=== PATIENT | male | born 1935 | race Caucasian/White ===

== ENCOUNTER 2016-09-11 16:16 | Inpatient (IN) | payer MEDICARE, OTHER ==
[~2016-09-11] VITALS: Ht 154.9 cm; Wt 67.1 kg
[~2016-09-11 16:16] MED LIST: ALBU2TAB5 PO; ALPR0.5T6 PO; BUDE6HFA INHALATION; DICL100G37 TOP; ENOX40DI2 SC; IBUP-1542 PO; LANT3I SC; MEMA28CA PO; NOVO3I SC; OMEP40CA6 PO; OXYB5TAB22 PO; RAMI5CAP46 PO; RISP0.5T3 PO; RIVA1PAT TD; SITA100T8 PO; TAMS-14 PO; TIOT18CA INHALATION; TRAZ50TA18 PO
[2016-09-11] MEDS ORDERED: KETOROLAC 30 MG INJ IV STA (16:28)
[2016-09-11] MEDS ORDERED: APIXABAN 5 MG TABLET PO ONE (17:00)
[2016-09-11 17:03] LABS: BASOPHILS % 0.1 % (0.0-2.0); EOSINOPHILS % 0.4 % (0.0-7.0); HEMATOCRIT 39.9 % (42.0-52.0); HEMOGLOBIN 12.9 g/dl (14.0-18.0); LYMPHOCYTES # 1.3 10^3/ul (0.8-2.9); LYMPHOCYTES % 17.5 % (15.0-51.0); MEAN CORPUSCULAR HEMOGLOBIN 31.7 pg (29.0-33.0); MEAN CORPUSCULAR HGB CONC 32.3 g/dl (32.0-37.0); MEAN PLATELET VOLUME 10.6 fl (7.4-10.4); MONOCYTE # 0.7 10^3/ul (0.3-0.9); MONOCYTES % 9.1 % (0.0-11.0); NEUTROPHIL # 5.2 10^3/ul (1.6-7.5); NEUTROPHILS % 72.6 % (39.0-77.0); PLATELET COUNT 118 10^3/UL (140-415); RED BLOOD COUNT 4.07 10^6/ul (4.70-6.10); RED CELL DISTRIBUTION WIDTH 13.8 % (11.5-14.5); WHITE BLOOD COUNT 7.2 10^3/ul (4.8-10.8)
--- NOTE | 2016-09-11 17:07 | RADRPT ---
AMENDMENT: 09/11/2016 5:32:18 PM Boom Preciado M.d Preliminary results given to versus from physician immediately after exam. AMENDMENT: 09/11/2016 5:31:23 PM Boom Preciado M.d PROCEDURE: US DVT. CLINICAL INDICATION: Right lower extremity pain and swelling. TECHNIQUE: Multiple longitudinal and transverse images of the right lower extremity veins were obt ained with etienne scale and color Doppler imaging. 2D grayscale measurements with compression, color Doppler flow, and augmentation was performed. COMPARISON: No prior studies are available for comparison. FINDINGS: The right common femoral, superficial femoral and popliteal veins are noncompressible throughout. T here is no color flow seen throughout the lower extremity veins consistent with extensive occlusive deep venous thrombosis of the right lower extremity. IMPRESSION: 1. Extensive occlusive deep venous thrombosis of the right lower extremity. RPTAT: QQ Please disregard report below. PROCEDURE: US DVT. CLINICAL INDICATION: Right lower extremity pain and swelling. TECHNIQUE: Multiple longitudinal and transverse images of the right lower extremity veins were obt ained with etienne scale and color Doppler imaging. 2D grayscale measurements with compression, color Doppler flow, and augmentation was performed. COMPARISON: No prior studies are available for comparison. FINDINGS: The right common femoral, superficial femoral and popliteal veins are normally compressible througho ut. Color flow demonstrates normal filling of the vessel. Normal waveforms are visualized and ther e is normal response to augmentation. IMPRESSION: 1. No evidence of a deep vein thrombosis involving the right lower extremity. RPTAT: QQ .Boom Preciado MD, MD Date Time Electronically viewed and signed by .Boom Preciado MD, MD on 09/11/2016 17:32 .L/
--- NOTE | 2016-09-11 17:15 | RADRPT ---
PROCEDURE: XR Chest. CLINICAL INDICATION: Chest Pain. TECHNIQUE: Single frontal chest x-ray. COMPARISON: 05/15/2015 FINDINGS: The lungs are clear of acute infiltrates, edema, effusions, or masses. Biapical pleural and parenchy mal scarring is again noted.. Calcific atherosclerosis of the aorta is present. The cardiomediastin al silhouette is unremarkable. The osseous structures are intact. Low lung volumes are present. IMPRESSION: No acute cardiopulmonary disease. Senescent changes of the chest. RPTAT: QQ .Boom Preciado MD, MD Date Time Electronically viewed and signed by .Boom Preciado MD, on 09/11/2016 17:15 .L/
[2016-09-11 17:25] LABS: ANION GAP 18 (8-16); BLOOD UREA NITROGEN 35 mg/dl (7-20); CALCIUM 9.5 mg/dl (8.4-10.2); CARBON DIOXIDE 29 mmol/L (21-31); CHLORIDE 105 mmol/L (97-110); CREATININE 0.96 mg/dl (0.61-1.24); POTASSIUM 5.1 mmol/L (3.5-5.1); SODIUM 147 mmol/L (135-144)
[2016-09-11 17:26] LABS: INR 1.16; PARTIAL THROMBOPLASTIN TIME 26.4 Sec (25.0-35.0); PROTIME 14.9 Sec (12.2-14.2); PT RATIO 1.2
[2016-09-11 17:29] LABS: GLUCOSE 550 mg/dl (70-220)
[2016-09-11] MEDS ORDERED: ACETAMINOPHEN 325 MG TAB PO PRN (17:30)
[2016-09-11] MEDS ORDERED: ONDANSETRON 4 MG INJ IV PRN (17:30)
[2016-09-11 17:39] LABS: TROPONIN-I < 0.012 ng/ml (0.00-0.12)
[2016-09-11] MEDS ORDERED: INSULIN LISPRO 100 UNIT/ML VIAL SC STA (17:40)
--- NOTE | 2016-09-11 17:56 | ERA ---
ER Documentation Chief Complaint Date/Time DATE: 09/11/16 TIME: 17:54 Chief Complaint R LEG DISCOLORATION AND SWELLING FOR THE PAST 2 DAYS. NO TRAUMA PER FAMILY HPI Patient is a 80-year-old male with diabetes and dementia who presents with right leg pain and swelling. Please note the history and physical exam is limited secondary to the patient's dementia. The patient has right leg pain, swelling, and discoloration over the past 2 days. The whole leg is swollen. He denies fevers. He takes a baby aspirin occasionally per his son. The primary doctor is Dr. Shen. ROS All systems reviewed and are negative except as per history of present illness. Medications Home Meds Active Scripts Insulin Aspart* (Novolog Insulin Pen*) 100 Unit/Ml Soln, 4 UNIT SC WITH MEALS for 30 Days, BOT Prov:TONO OLRA MD 05/09/15 Insulin Glargine* (Lantus*) 100 Unit/Ml Soln, 18 UNIT SC DAILY for 30 Days, BOT Prov:TONO LORA MD 05/09/15 Enoxaparin Sodium* (Enoxaparin Sodium*) 40 Mg/0.4 Ml Soln, 40 MG SC DAILY for 30 Days, VIAL Prov:TONO LORA MD 05/09/15 Reported Medications Albuterol Sulfate* (Albuterol Sulfate*) 2 Mg Tablet, 2 MG PO BID, #120 TAB 04/18/15 Memantine* (Namenda* XR) 28 Mg Cap.spr.24, 28 MG PO DAILY, #30 TAB 04/18/15 Rivastigmine* Patch (Exelon* Patch) 13.3 Mg/24 Hr Patch.td24, 1 PATCH TD DAILY, PATCH 04/18/15 Budesonide-Formoterol Fumarate* (Symbicort*) 160-4.5 Hfa.aer.ad, 2 PUFF INHALATION BID, #1 EACH 04/18/15 Sitagliptin* (Januvia*) 100 Mg Tablet, 100 MG PO DAILY, #30 TAB 04/18/15 Tiotropium Edna* (Spiriva*) 18 Mcg Cap.w.dev, 1 CAP INHALATION DAILY, #30 CAP 04/18/15 Trazodone Hcl* (Desyrel*) 50 Mg Tab, 50 MG PO BID, #60 TAB 04/18/15 Omeprazole* (Omeprazole*) 40 Mg Capsule.dr, 40 MG PO DAILY, #30 CAP 04/18/15 Tamsulosin Hcl* (Flomax*) 0.4 Mg Cap.er.24h, 0.4 MG PO DAILY, CAP 04/18/15 Risperidone* (Risperidone*) 0.5 Mg Tablet, 0.5 MG PO DAILY, TAB 04/18/15 Ibuprofen* (Motrin*) 600 Mg Tab, 600 MG PO Q8H Y for PAIN, TAB 04/18/15 Diclofenac Sodium* (Voltaren* Gel) 1% -100 Gm Gel, 2 GM TOP TID, #1 TUB 04/18/15 Oxybutynin Chloride* (Ditropan* XL) 5 Mg Tabsr, 5 MG PO DAILY, TAB.SA 04/18/15 Alprazolam* (Alprazolam*) 0.5 Mg Tablet, 0.5 MG PO Q8H Y for ANXIETY, TAB 04/18/15 Ramipril (Ramipril) 5 Mg Capsule, 5 MG PO DAILY, CAP 04/18/15 Allergies Allergies: Coded Allergies: No Known Allergy (Unverified , 04/18/15) PMhx/Soc History of Surgery: Yes (R THR 3 MONTHS AGO ) Anesthesia Reaction: No Hx Neurological Disorder: No Hx Respiratory Disorders: Yes (COPD) Hx Cardiac Disorders: Yes (HTN) Hx Psychiatric Problems: Yes (ANXIETY DISORDER, DEMENTIA, SCHIZOPHRENIA) Hx Miscellaneous Medical Probl: Yes (BPH, dementia, schizophrenia, anxiety, GERD) Hx Alcohol Use: No Hx Substance Use: No Hx Tobacco Use: No Smoking Status: Former smoker FmHx Family History: diabetes Physical Exam Vitals Vital Signs Date Time Temp Pulse Resp B/P Pulse Ox O2 Delivery O2 Flow Rate FiO2 09/11/16 17:38 95 18 168/99 99 Room Air 09/11/16 16:44 Nasal Cannula 2 09/11/16 16:17 98.9 88 20 131/71 98 Physical Exam Const: Mild distress Head: Atraumatic Eyes: Normal Conjunctiva ENT: Normal External Ears, Nose and Mouth. Neck: Full range of motion..~ No meningismus. Resp: Clear to auscultation bilaterally Cardio: Regular rate and rhythm, no murmurs Abd: Soft, non tender, non distended. Normal bowel sounds Skin: Cyanosis of the right leg Back: No midline or flank tenderness Ext: Right leg swelling with discoloration compared to the left Neur: Awake but demented at baseline Result Diagram: 09/11/16 1648 09/11/16 1648 Results 24 hrs Laboratory Tests Test 09/11/16 16:48 White Blood Count 7.210^3/ul Red Blood Count 4.0710^6/ul Hemoglobin 12.9g/dl Hematocrit 39.9% Mean Corpuscular Volume 98.0fl Mean Corpuscular Hemoglobin 31.7pg Mean Corpuscular Hemoglobin Concent 32.3g/dl Red Cell Distribution Width 13.8% Platelet Count 63489^3/UL Mean Platelet Volume 10.6fl Neutrophils % 72.6% Lymphocytes % 17.5% Monocytes % 9.1% Eosinophils % 0.4% Basophils % 0.1% Nucleated Red Blood Cells % 0.0/100WBC Neutrophils # 5.210^3/ul Lymphocytes # 1.310^3/ul Monocytes # 0.710^3/ul Eosinophils # 0.010^3/ul Basophils # 0.010^3/ul Nucleated Red Blood Cells # 0.010^3/ul Prothrombin Time 14.9Sec Prothrombin Time Ratio 1.2 INR International Normalized Ratio 1.16 Activated Partial Thromboplast Time 26.4Sec Sodium Level 147mmol/L Potassium Level 5.1mmol/L Chloride Level 105mmol/L Carbon Dioxide Level 29mmol/L Anion Gap 18 Blood Urea Nitrogen 35mg/dl Creatinine 0.96mg/dl Glucose Level 550mg/dl Calcium Level 9.5mg/dl Troponin I < 0.012ng/ml Current Medications Medications (Trade) Dose Ordered Sig/Raj Route PRN Reason Start Time Stop Time Status Last Admin Dose Admin Ketorolac Tromethamine (Toradol) 30 mg ONCE STAT IV 09/11/16 16:28 09/11/16 16:29 DC 09/11/16 17:18 Apixaban (Eliquis) 10 mg ONCE ONCE PO 09/11/16 17:00 09/11/16 17:01 DC 09/11/16 17:18 Ondansetron HCl (Zofran Inj) 4 mg BRIDGE ORDER PRN IV NAUSEA AND/OR VOMITING 09/11/16 17:30 09/12/16 17:29 Acetaminophen (Tylenol Tab) 650 mg ER BRIDGE PRN PO MILD PAIN/FEVER 09/11/16 17:30 09/12/16 17:29 Insulin Human Lispro (Humalog) 20 unit ONCE STAT SC 09/11/16 17:40 09/11/16 17:41 DC 09/11/16 17:48 Procedures/MDM EKG read by me: Rate/Rhythm: Regular rate and rhythm at a rate of 81 Intervals: Normal Impression: No evidence of ischemia or arrhythmia Ultrasound of the right lower extremity shows acute DVT. Patient is a 80-year-old male who presents with a right lower extremity DVT. He is a large DVT and the patient will be given Eliquis 10 mg by mouth. The patient be admitted to a surgical bed under the care of Dr. Ma who is covering for Dr. Shen. The patient has no sign of pulmonary embolism at this time. His prognosis is poor. He has hyperkalemia and was given 20 units of Humalog subcutaneous. There is no sign of diabetic ketoacidosis at this time. Critical Care: Time: 35 minutes excluding all billable procedures. Treatments/Evaluations: Close monitoring and treatment of unstable vital signs, cardiorespiratory, and neurologic status, while maintaining tight balance of fluid, respiratory, and cardiac interventions. Departure Diagnosis: Primary Impression: DVT (deep venous thrombosis) Qualified Code: I82.401 - Acute deep vein thrombosis (DVT) of right lower extremity, unspecified vein Additional Impression: Pain of right leg Condition: Serious SUYAPA HANKS MD Sep 11, 2016 17:56
[2016-09-11 18:20] VITALS: BP 184/83; PULSE 79; RESP 18
[2016-09-11 18:56] VITALS: BP 184/83; RESP 18
[2016-09-11 19:30] VITALS: Ht 154.9 cm; Wt 67.1 kg
[2016-09-11] MEDS ORDERED: IBUPROFEN 600 MG TAB PO PRN (20:30)
[2016-09-11 20:53] VITALS: BP_SYST 125; BP_SYST 95; BP_DIAS 60; BP_DIAS 68; RESP 16
[2016-09-11] MEDS ORDERED: ALBUTEROL 2 MG TAB PO SCH (21:00)
[2016-09-11] MEDS ORDERED: MEMANTINE 10 MG TAB PO SCH (21:00)
[2016-09-11] MEDS ORDERED: DEXTROSE 50% 50 ML SYRINGE IV PRN ×2 (21:00)
[2016-09-11] MEDS: INSULIN GLARGINE [LANtus] 3 ML PEN SC SCH (21:00)
[2016-09-11] MEDS ORDERED: GLUCAGON 1 MG INJ IM PRN (21:00)
[2016-09-11] MEDS ORDERED: GLUCOSE GEL 15 GRAM TUBE BUCCAL PRN (21:00)
[2016-09-11] MEDS ORDERED: traZODone 50 MG TAB PO SCH (21:00)
[2016-09-11] MEDS: INSULIN ASPART [NOVOLOG] 3 ML PEN SC SCH (21:00)
[2016-09-11] MEDS ORDERED: GLUCOSE GEL 15 GRAM TUBE PO PRN ×2 (21:00)
[2016-09-11] MEDS ORDERED: SPECIAL NON-STANDARD MEDICATION PO SCH (21:00)
[2016-09-11] MEDS: APIXABAN 5 MG TABLET PO SCH (23:03)
[2016-09-11] MEDS: TAMSULOSIN (SR) 0.4 MG CAP PO SCH (23:03)
[2016-09-11] MEDS: traZODone 50 MG TAB PO SCH (23:04)
[2016-09-11] MEDS: DICLOFENAC SODIUM 1% GEL 100 GM TUBE TP SCH (23:04)
[2016-09-12] MEDS: ACCU-CHEK XX SCH ×2 (02:00)
[2016-09-12 02:48] VITALS: BP 99/56; RESP 18
[2016-09-12 05:38] LABS: BASOPHILS % 0.4 % (0.0-2.0); EOSINOPHILS # 0.1 10^3/ul (0.0-0.5); EOSINOPHILS % 1.2 % (0.0-7.0); HEMATOCRIT 36.7 % (42.0-52.0); HEMOGLOBIN 11.8 g/dl (14.0-18.0); LYMPHOCYTES # 1.8 10^3/ul (0.8-2.9); LYMPHOCYTES % 25.5 % (15.0-51.0); MEAN CORPUSCULAR HEMOGLOBIN 31.9 pg (29.0-33.0); MEAN CORPUSCULAR HGB CONC 32.2 g/dl (32.0-37.0); MEAN CORPUSCULAR VOLUME 99.2 fl (82.0-101.0); MEAN PLATELET VOLUME 10.2 fl (7.4-10.4); MONOCYTE # 0.7 10^3/ul (0.3-0.9); MONOCYTES % 9.6 % (0.0-11.0); NEUTROPHIL # 4.3 10^3/ul (1.6-7.5); NEUTROPHILS % 63.2 % (39.0-77.0); PLATELET COUNT 110 10^3/UL (140-415); RED CELL DISTRIBUTION WIDTH 13.7 % (11.5-14.5); WHITE BLOOD COUNT 6.9 10^3/ul (4.8-10.8)
[2016-09-12 05:57] LABS: CALCIUM 9.5 mg/dl (8.4-10.2); CREATININE 1.05 mg/dl (0.61-1.24); POTASSIUM 4.2 mmol/L (3.5-5.1)
[2016-09-12] MEDS ORDERED: PANTOPRAZOLE (EC) 40 MG TAB PO SCH (06:00)
[2016-09-12 08:25] VITALS: BP 165/70; RESP 18
[2016-09-12] MEDS: MULTIVITAMINS/MINERALS TAB PO SCH (08:58)
[2016-09-12] MEDS: LINAGLIPTIN 5 MG TABLET PO SCH (08:58)
[2016-09-12] MEDS: APIXABAN 5 MG TABLET PO SCH ×2 (08:58→20:23)
[2016-09-12] MEDS: MEMANTINE 10 MG TAB PO SCH (08:58)
[2016-09-12] MEDS: INSULIN ASPART [NOVOLOG] 3 ML PEN SC SCH ×4 (08:59→20:26)
[2016-09-12] MEDS: DICLOFENAC SODIUM 1% GEL 100 GM TUBE TP SCH ×2 (08:59→11:59)
[2016-09-12] MEDS ORDERED: NON-FORMULARY/PATIENT OWN MED (Sitagliptin* (Januvia*) 100 MG) PO SCH (09:00)
[2016-09-12] MEDS ORDERED: MEMANTINE 10 MG TAB PO SCH (09:00)
[2016-09-12] MEDS ORDERED: NON-FORMULARY/PATIENT OWN MED (Sitagliptin* (Januvia*) 50 MG) PO SCH (09:00)
--- NOTE | 2016-09-12 12:52 | HP ---
Date/Time of Note Date/Time of Note DATE: 09/12/16 TIME: 12:50 Assessment/Plan VTE Prophylaxis VTE Prophylaxis Intervention: other Lines/Catheters [facility] Urinary Cath still in place: No Assessment/Plan Chief Complaint/Hosp Course 1) Deep venous thrombosis - continue eliquis 2) diabetes - monitor blood sugar 3) dementia - monitor Problems: HPI/ROS Admit Date/Time Admit Date/Time Sep 11, 2016 at 17:07 Hx of Present Illness Patient with dementia, hypertension, diabetes, bed-bound, comes in with right leg weakness. Patient was found to have extensive deep venous thrombosis. Patient is started on eliquis and will be monitored. PMH/Family/Social Past Medical History Medical History: coronary artery disease, diabetes, hypertension Social History Alcohol Use: none Smoking Status: Former smoker Exam/Review of Systems Vital Signs Vitals Vital Signs Date Time Temp Pulse Resp B/P Pulse Ox O2 Delivery O2 Flow Rate FiO2 09/12/16 08:25 97.7 74 18 165/70 97 09/11/16 18:20 Room Air 09/11/16 16:44 2 Intake and Output 09/11/16 09/11/16 09/12/16 15:00 23:00 07:00 Intake Total 240 ml Balance 240 ml Exam Constitutional: well developed Head: atraumatic, normocephalic Neck: supple Respiratory: clear to auscultation Cardiovascular: regular rate and rhythm Gastrointestinal: non-tender, soft Extremities: normal pulses Labs Result Diagram: 09/12/16 0426 09/12/16 0426 Medications Medications Current Medications Insulin Glargine (Lantus) 18 unit DAILY@20 SC ; Start 09/11/16 at 21:00 Diagnostic Test (Pha) (Accu-Chek) 1 ea 02 XX ; Start 09/12/16 at 02:00 Diagnostic Test (Pha) (Accu-Chek) 1 ea 02 XX ; Start 09/12/16 at 02:00 Diclofenac Sodium (Voltaren 1% Gel) 2 gm QID TP Last administered on 09/12/16t 11:59; Admin Dose 2 GM; Start 09/11/16 at 22:00 Ibuprofen (Motrin) 600 mg Q8H PRN PO pain; Start 09/11/16 at 20:30 Tamsulosin HCl (Flomax) 0.4 mg HS PO Last administered on 09/11/16 23:03; Admin Dose 0.4 MG; Start 09/11/16 at 21:00 Miscellaneous Information 1 ea NOTE XX ; Start 09/11/16 at 21:00 Glucose (Glutose) 15 gm Q15M PRN PO DECREASED GLUCOSE; Start 09/11/16 at 21:00 Glucose (Glutose) 22.5 gm Q15M PRN PO DECREASED GLUCOSE; Start 09/11/16 at 21:00 Dextrose (D50w Syringe) 25 ml Q15M PRN IV DECREASED GLUCOSE; Start 09/11/16 at 21:00 Dextrose (D50w Syringe) 50 ml Q15M PRN IV DECREASED GLUCOSE; Start 09/11/16 at 21:00 Glucagon (Glucagen) 1 mg Q15M PRN IM DECREASED GLUCOSE; Start 09/11/16 at 21:00 Glucose (Glutose) 15 gm Q15M PRN BUCCAL DECREASED GLUCOSE; Start 09/11/16 at 21: 00 Linagliptin (Tradjenta) 5 mg DAILY PO Last administered on 09/12/16 08:58; Admin Dose 5 MG; Start 09/12/16 at 09:00 Trazodone HCl (Desyrel) 100 mg HS PO Last administered on 09/11/16 23:04; Admin Dose 100 MG; Start 09/11/16 at 21:00 Multivitamins/ Minerals (Theragran-M) 1 tab DAILY PO Last administered on 08:58; Admin Dose 1 TAB; Start 09/12/16 at 09:00 Apixaban (Eliquis) 5 mg BID PO Last administered on 09/12/16 08:58; Admin Dose 5 MG; Start 09/11/16 at 21:00 Memantine (Namenda) 10 mg DAILY PO Last administered on 09/12/16 08:58; Admin Dose 10 MG; Start 09/12/16 at 09:00 VASILIY CABA Sep 12, 2016 12:52
[2016-09-12 15:37] VITALS: BP 136/66; RESP 18
[2016-09-12 19:30] VITALS: BP 120/70; RESP 16
[2016-09-12] MEDS: INSULIN GLARGINE [LANtus] 3 ML PEN SC SCH (20:00)
[2016-09-12] MEDS: traZODone 50 MG TAB PO SCH (20:23)
[2016-09-12] MEDS: TAMSULOSIN (SR) 0.4 MG CAP PO SCH (20:23)
[2016-09-12] MEDS ORDERED: INSULIN GLARGINE [LANtus] 3 ML PEN SC ONE (21:00)
[2016-09-13] MEDS: ACCU-CHEK XX SCH ×2 (02:00)
[2016-09-13 02:20] VITALS: BP 137/65; RESP 18
[2016-09-13 07:40] VITALS: BP 137/64; RESP 18
[2016-09-13] MEDS: INSULIN ASPART [NOVOLOG] 3 ML PEN SC SCH ×5 (08:00→21:15)
[2016-09-13] MEDS: MEMANTINE 10 MG TAB PO SCH (08:38)
[2016-09-13] MEDS: LINAGLIPTIN 5 MG TABLET PO SCH (08:38)
[2016-09-13] MEDS: MULTIVITAMINS/MINERALS TAB PO SCH (08:38)
[2016-09-13] MEDS: APIXABAN 5 MG TABLET PO SCH ×2 (08:38→21:14)
[2016-09-13 14:55] VITALS: BP 166/74; RESP 18
[2016-09-13 16:13] VITALS: BP 142/76; PULSE 62
[2016-09-13] MEDS: SOD CHLORIDE 0.45% 1,000 ML IV SCH (18:11)
--- NOTE | 2016-09-13 18:19 | PN ---
Date/Time of Note Date/Time of Note DATE: 09/13/16 TIME: 18:17 Assessment/Plan VTE Prophylaxis VTE Prophylaxis Intervention: other Lines/Catheters IV Catheter Type (from Nrsg): Mid Line Urinary Cath still in place: No Assessment/Plan Assessment/Plan -Right lower extremity deep venous thrombosis, continue Eliquis. -Advanced dementia, continue Namenda. -Diabetes mellitus type 2. Continue Tradjenta Lantus and NovoLog. Further recommendations based on clinical course. Plan of care discussed with Dr. Shen. Exam/Review of Systems Vital Signs Vitals Vital Signs Date Time Temp Pulse Resp B/P Pulse Ox O2 Delivery O2 Flow Rate FiO2 09/13/16 16:13 62 142/76 09/13/16 14:55 98.1 18 96 09/11/16 18:20 Room Air 09/11/16 16:44 2 Intake and Output 09/12/16 09/12/16 09/13/16 15:00 23:00 07:00 Intake Total 640 ml 220 ml Balance 640 ml 220 ml Exam Constitutional: alert Psych: confusion Neck: supple Respiratory: normal air movement Cardiovascular: nl pulses Gastrointestinal: non-tender, soft Extremities: edema (Right lower extremity) Neurological: confused Skin: nl turgor Results Result Diagram: 09/12/16 0426 09/12/16 0426 Results 24 hrs Laboratory Tests Test 09/12/16 20:25 09/13/16 02:39 09/13/16 07:56 09/13/16 11:56 Bedside Glucose 275 H 194 204 223 H Test 09/13/16 17:22 Bedside Glucose 216 Medications Medications Current Medications Insulin Glargine (Lantus) 18 unit DAILY@20 SC ; Start 09/11/16 at 21:00 Diagnostic Test (Pha) (Accu-Chek) 1 ea 02 XX ; Start 09/12/16 at 02:00 Diagnostic Test (Pha) (Accu-Chek) 1 ea 02 XX ; Start 09/12/16 at 02:00 Ibuprofen (Motrin) 600 mg Q8H PRN PO pain; Start 09/11/16 at 20:30 Tamsulosin HCl (Flomax) 0.4 mg HS PO Last administered on 09/12/16t 20:23; Admin Dose 0.4 MG; Start 09/11/16 at 21:00 Miscellaneous Information 1 ea NOTE XX ; Start 09/11/16 at 21:00 Glucose (Glutose) 15 gm Q15M PRN PO DECREASED GLUCOSE; Start 09/11/16 at 21:00 Glucose (Glutose) 22.5 gm Q15M PRN PO DECREASED GLUCOSE; Start 09/11/16 at 21:00 Dextrose (D50w Syringe) 25 ml Q15M PRN IV DECREASED GLUCOSE; Start 09/11/16 at 21:00 Dextrose (D50w Syringe) 50 ml Q15M PRN IV DECREASED GLUCOSE; Start 09/11/16 at 21:00 Glucagon (Glucagen) 1 mg Q15M PRN IM DECREASED GLUCOSE; Start 09/11/16 at 21:00 Glucose (Glutose) 15 gm Q15M PRN BUCCAL DECREASED GLUCOSE; Start 09/11/16 at 21: 00 Linagliptin (Tradjenta) 5 mg DAILY PO Last administered on 09/13/16 08:38; Admin Dose 5 MG; Start 09/12/16 at 09:00 Trazodone HCl (Desyrel) 100 mg HS PO Last administered on 09/12/16 20:23; Admin Dose 100 MG; Start 09/11/16 at 21:00 Multivitamins/ Minerals (Theragran-M) 1 tab DAILY PO Last administered on 08:38; Admin Dose 1 TAB; Start 09/12/16 at 09:00 Apixaban (Eliquis) 5 mg BID PO Last administered on 09/13/16 08:38; Admin Dose 5 MG; Start 09/11/16 at 21:00 Memantine 10 mg 10 mg DAILY PO Last administered on 09/13/16 08:38; Admin Dose 10 MG; Start 09/12/16 at 09:00 Sodium Chloride (1/2 NS) 1,000 ml @ 50 mls/hr Q20H IV Last administered on 09/13 18:11; Admin Dose 50 MLS/HR; Start 09/13/16 at 17:30 JAROD BECKFORD Sep 13, 2016 18:19
[2016-09-13 20:03] VITALS: BP 137/97; RESP 17
[2016-09-13] MEDS: TAMSULOSIN (SR) 0.4 MG CAP PO SCH (21:14)
[2016-09-13] MEDS: INSULIN GLARGINE [LANtus] 3 ML PEN SC SCH (21:16)
[2016-09-13] MEDS: traZODone 50 MG TAB PO SCH (22:33)
[2016-09-14] MEDS: ACCU-CHEK XX SCH ×2 (02:00)
[2016-09-14] MEDS ORDERED: ACCU-CHEK XX SCH ×3 (02:00)
[2016-09-14 02:05] VITALS: BP 143/68; RESP 17
[2016-09-14 05:59] LABS: BASOPHILS % 0.5 % (0.0-2.0); EOSINOPHILS # 0.2 10^3/ul (0.0-0.5); EOSINOPHILS % 2.5 % (0.0-7.0); HEMATOCRIT 36.3 % (42.0-52.0); HEMOGLOBIN 11.9 g/dl (14.0-18.0); LYMPHOCYTES # 2.1 10^3/ul (0.8-2.9); LYMPHOCYTES % 32.6 % (15.0-51.0); MEAN CORPUSCULAR HEMOGLOBIN 31.8 pg (29.0-33.0); MEAN CORPUSCULAR HGB CONC 32.8 g/dl (32.0-37.0); MEAN CORPUSCULAR VOLUME 97.1 fl (82.0-101.0); MEAN PLATELET VOLUME 10.2 fl (7.4-10.4); MONOCYTE # 0.6 10^3/ul (0.3-0.9); MONOCYTES % 9.7 % (0.0-11.0); NEUTROPHIL # 3.4 10^3/ul (1.6-7.5); NEUTROPHILS % 54.2 % (39.0-77.0); PLATELET COUNT 147 10^3/UL (140-415); RED BLOOD COUNT 3.74 10^6/ul (4.70-6.10); RED CELL DISTRIBUTION WIDTH 13.1 % (11.5-14.5); WHITE BLOOD COUNT 6.3 10^3/ul (4.8-10.8)
[2016-09-14 06:42] LABS: ALBUMIN 3.4 g/dl (3.3-4.9); ALBUMIN/GLOBULIN RATIO 0.91; BILIRUBIN,INDIRECT 0.6 mg/dl (0-1.1); BILIRUBIN,TOTAL 0.6 mg/dl (0.2-1.3); CALCIUM 9.3 mg/dl (8.4-10.2); CHOL/HDL RATIO 3.1 RATIO; CREATININE 0.84 mg/dl (0.61-1.24); POTASSIUM 3.9 mmol/L (3.5-5.1); TOTAL PROTEIN 7.1 g/dl (6.1-8.1)
[2016-09-14] MEDS ORDERED: INSULIN ASPART [NOVOLOG] 3 ML PEN SC SCH ×2 (07:35→08:00)
[2016-09-14] MEDS: INSULIN ASPART [NOVOLOG] 3 ML PEN SC SCH ×4 (07:56→21:39)
[2016-09-14 08:00] VITALS: BP 118/64; RESP 19
[2016-09-14] MEDS: APIXABAN 5 MG TABLET PO SCH ×2 (08:34→21:38)
[2016-09-14] MEDS: LINAGLIPTIN 5 MG TABLET PO SCH (08:34)
[2016-09-14] MEDS: MEMANTINE 10 MG TAB PO SCH (08:34)
[2016-09-14] MEDS: MULTIVITAMINS/MINERALS TAB PO SCH (08:34)
[2016-09-14] MEDS: SOD CHLORIDE 0.45% 1,000 ML IV SCH ×2 (13:30→15:47)
[2016-09-14 14:00] VITALS: BP 160/87; RESP 19
--- NOTE | 2016-09-14 18:18 | PN ---
Date/Time of Note Date/Time of Note DATE: 09/14/16 TIME: 18:15 Assessment/Plan VTE Prophylaxis VTE Prophylaxis Intervention: other (Eliquis) Lines/Catheters [facility] Peripheral IV Urinary Cath still in place: No Assessment/Plan Chief Complaint/Hosp Course Patient with slightly decreased right lower extremity edema, remains hemodynamically stable. Episodes of episodes of hypoglycemia during the daytime , will add pre-meal NovoLog to current diabetes management. Assessment/Plan -Right lower extremity deep venous thrombosis, continue Eliquis. -Advanced dementia, continue Namenda. -Diabetes mellitus type 2. Hemoglobin A1c is 8.0, continue Tradjenta Lantus and pre-meal NovoLog. -Hypertension, patient is currently normotensive. -History of schizophrenia. Further recommendations based on clinical course. Plan of care discussed with Dr. Shen. Problems: Exam/Review of Systems Vital Signs Vitals Vital Signs Date Time Temp Pulse Resp B/P Pulse Ox O2 Delivery O2 Flow Rate FiO2 09/14/16 08:00 98.0 68 19 118/64 98 09/11/16 18:20 Room Air 09/11/16 16:44 2 Intake and Output 09/13/16 09/13/16 09/14/16 15:00 23:00 07:00 Intake Total 1020 ml 700 ml Balance 1020 ml 700 ml Exam Constitutional: alert Psych: confusion Neck: supple Respiratory: normal air movement Cardiovascular: nl pulses Gastrointestinal: non-tender, soft Extremities: edema (Right lower extremity) Neurological: confused Skin: nl turgor Results Result Diagram: 09/14/16 0432 09/14/16 0432 Results 24 hrs Laboratory Tests Test 09/13/16 21:12 09/14/16 02:53 09/14/16 04:32 09/14/16 07:54 Bedside Glucose 235 H 147 84 White Blood Count 6.3 Red Blood Count 3.74 L Hemoglobin 11.9 L Hematocrit 36.3 L Mean Corpuscular Volume 97.1 Mean Corpuscular Hemoglobin 31.8 Mean Corpuscular Hemoglobin Concent 32.8 Red Cell Distribution Width 13.1 Platelet Count 147 # Mean Platelet Volume 10.2 Neutrophils % 54.2 Lymphocytes % 32.6 Monocytes % 9.7 Eosinophils % 2.5 Basophils % 0.5 Nucleated Red Blood Cells % 0.0 Neutrophils # 3.4 Lymphocytes # 2.1 Monocytes # 0.6 Eosinophils # 0.2 Basophils # 0.0 Nucleated Red Blood Cells # 0.0 Sodium Level 146 H Potassium Level 3.9 Chloride Level 104 Carbon Dioxide Level 30 Anion Gap 16 Blood Urea Nitrogen 30 H Creatinine 0.84 Glucose Level 116 Hemoglobin A1c 8.0 H Calcium Level 9.3 Total Bilirubin 0.6 Direct Bilirubin 0.00 Indirect Bilirubin 0.6 Aspartate Amino Transf (AST/SGOT) 20 Alanine Aminotransferase (ALT/SGPT) 25 Alkaline Phosphatase 57 Total Protein 7.1 Albumin 3.4 Globulin 3.70 H Albumin/Globulin Ratio 0.91 Triglycerides Level 62 Cholesterol Level 116 LDL Cholesterol, Calculated 67 HDL Cholesterol 37 Cholesterol/HDL Ratio 3.1 Test 09/14/16 11:59 09/14/16 17:24 Bedside Glucose 231 H 252 H Medications Medications Current Medications Diagnostic Test (Pha) (Accu-Chek) 1 ea 02 XX ; Start 09/12/16 at 02:00 Diagnostic Test (Pha) (Accu-Chek) 1 ea 02 XX ; Start 09/12/16 at 02:00 Ibuprofen (Motrin) 600 mg Q8H PRN PO pain; Start 09/11/16 at 20:30 Tamsulosin HCl (Flomax) 0.4 mg HS PO Last administered on 09/13/16 21:14; Admin Dose 0.4 MG; Start 09/11/16 at 21:00 Miscellaneous Information 1 ea NOTE XX ; Start 09/11/16 at 21:00 Glucose (Glutose) 15 gm Q15M PRN PO DECREASED GLUCOSE; Start 09/11/16 at 21:00 Glucose (Glutose) 22.5 gm Q15M PRN PO DECREASED GLUCOSE; Start 09/11/16 at 21:00 Dextrose (D50w Syringe) 25 ml Q15M PRN IV DECREASED GLUCOSE; Start 09/11/16 at 21:00 Dextrose (D50w Syringe) 50 ml Q15M PRN IV DECREASED GLUCOSE; Start 09/11/16 at 21:00 Glucagon (Glucagen) 1 mg Q15M PRN IM DECREASED GLUCOSE; Start 09/11/16 at 21:00 Glucose (Glutose) 15 gm Q15M PRN BUCCAL DECREASED GLUCOSE; Start 09/11/16 at 21: 00 Linagliptin (Tradjenta) 5 mg DAILY PO Last administered on 09/14/16 08:34; Admin Dose 5 MG; Start 09/12/16 at 09:00 Trazodone HCl (Desyrel) 100 mg HS PO Last administered on 09/13/16 22:33; Admin Dose 100 MG; Start 09/11/16 at 21:00 Multivitamins/ Minerals (Theragran-M) 1 tab DAILY PO Last administered on 08:34; Admin Dose 1 TAB; Start 09/12/16 at 09:00 Apixaban (Eliquis) 5 mg BID PO Last administered on 09/14/16 08:34; Admin Dose 5 MG; Start 09/11/16 at 21:00 Memantine 10 mg 10 mg DAILY PO Last administered on 09/14/16 08:34; Admin Dose 10 MG; Start 09/12/16 at 09:00 Sodium Chloride (1/2 NS) 1,000 ml @ 50 mls/hr Q20H IV Last administered on 09/14 15:47; Admin Dose 50 MLS/HR; Start 09/13/16 at 17:30 Insulin Glargine (Lantus) 22 unit DAILY@20 SC ; Start 09/14/16 at 20:00 JAROD BECKFORD Sep 14, 2016 18:18
[2016-09-14] MEDS ORDERED: INSULIN GLARGINE [LANtus] 3 ML PEN SC SCH (20:00)
[2016-09-14] MEDS: INSULIN GLARGINE [LANtus] 3 ML PEN SC SCH (20:00)
[2016-09-14 20:03] VITALS: BP 138/96; RESP 17
[2016-09-14] MEDS: TAMSULOSIN (SR) 0.4 MG CAP PO SCH (21:38)
[2016-09-14] MEDS: traZODone 50 MG TAB PO SCH (21:38)
[2016-09-14] MEDS ORDERED: INSULIN GLARGINE [LANtus] 3 ML PEN SC ONE (22:30)
[2016-09-15] MEDS: ACCU-CHEK XX SCH ×2 (02:00)
[2016-09-15 02:01] VITALS: BP 106/62; RESP 18
[2016-09-15 06:51] LABS: BASOPHILS % 0.4 % (0.0-2.0); EOSINOPHILS # 0.1 10^3/ul (0.0-0.5); EOSINOPHILS % 2.2 % (0.0-7.0); HEMATOCRIT 34.9 % (42.0-52.0); HEMOGLOBIN 11.9 g/dl (14.0-18.0); LYMPHOCYTES # 1.5 10^3/ul (0.8-2.9); LYMPHOCYTES % 27.7 % (15.0-51.0); MEAN CORPUSCULAR HEMOGLOBIN 32.3 pg (29.0-33.0); MEAN CORPUSCULAR HGB CONC 34.1 g/dl (32.0-37.0); MEAN CORPUSCULAR VOLUME 94.8 fl (82.0-101.0); MONOCYTE # 0.7 10^3/ul (0.3-0.9); MONOCYTES % 12.5 % (0.0-11.0); NEUTROPHIL # 3.1 10^3/ul (1.6-7.5); NEUTROPHILS % 56.8 % (39.0-77.0); PLATELET COUNT 153 10^3/UL (140-415); RED BLOOD COUNT 3.68 10^6/ul (4.70-6.10); RED CELL DISTRIBUTION WIDTH 12.9 % (11.5-14.5); WHITE BLOOD COUNT 5.4 10^3/ul (4.8-10.8)
[2016-09-15 07:14] LABS: CALCIUM 9.1 mg/dl (8.4-10.2); CREATININE 0.91 mg/dl (0.61-1.24); POTASSIUM 4.1 mmol/L (3.5-5.1)
[2016-09-15] MEDS ORDERED: INSULIN REGULAR 10 ML INJ SC SCH (07:30)
[2016-09-15] MEDS ORDERED: INSULIN ASPART [NOVOLOG] 3 ML PEN SC SCH (07:35)
[2016-09-15 08:00] VITALS: BP_SYST 107; BP_SYST 127; BP_DIAS 55; BP_DIAS 60; RESP 20
[2016-09-15] MEDS: INSULIN ASPART [NOVOLOG] 3 ML PEN SC SCH ×6 (08:31→17:27)
[2016-09-15] MEDS: LINAGLIPTIN 5 MG TABLET PO SCH (08:33)
[2016-09-15] MEDS: APIXABAN 5 MG TABLET PO SCH ×2 (08:33→20:08)
[2016-09-15] MEDS: MEMANTINE 10 MG TAB PO SCH (08:33)
[2016-09-15] MEDS: MULTIVITAMINS/MINERALS TAB PO SCH (08:33)
[2016-09-15] MEDS: SOD CHLORIDE 0.45% 1,000 ML IV SCH (11:59)
[2016-09-15 14:00] VITALS: BP 105/72; RESP 20
--- NOTE | 2016-09-15 15:40 | PN ---
Date/Time of Note Date/Time of Note DATE: 09/15/16 TIME: 15:36 Assessment/Plan VTE Prophylaxis VTE Prophylaxis Intervention: SCD's Lines/Catheters IV Catheter Type (from [facility]): Peripheral IV Urinary Cath still in place: No Assessment/Plan Chief Complaint/Hosp Course Right lower extremity with decreased edema, blood sugar is still elevated, Lantus is ordered however last night dose was not given. Assessment/Plan -Right lower extremity deep venous thrombosis, continue Eliquis. -Advanced dementia, continue Namenda. -Diabetes mellitus type 2. Hemoglobin A1c is 8.0, continue Tradjenta Lantus and pre-meal NovoLog. -Hypertension, patient is currently normotensive. -History of schizophrenia. Further recommendations based on clinical course. Plan of care discussed with Dr. Shen. Problems: Exam/Review of Systems Vital Signs Vitals Vital Signs Date Time Temp Pulse Resp B/P Pulse Ox O2 Delivery O2 Flow Rate FiO2 09/15/16 14:00 98.4 62 20 105/72 94 09/11/16 18:20 Room Air 09/11/16 16:44 2 Intake and Output 09/14/16 09/14/16 09/15/16 15:00 23:00 07:00 Intake Total 1250 ml 120 ml Balance 1250 ml 120 ml Exam Constitutional: alert Psych: confusion Neck: supple Respiratory: normal air movement Cardiovascular: nl pulses Gastrointestinal: non-tender, soft Extremities: edema (Right lower extremity), improved Neurological: confused Skin: nl turgor Results Result Diagram: 09/15/16 0619 09/15/16 0619 Results 24 hrs Laboratory Tests Test 09/14/16 17:24 09/14/16 21:09 09/14/16 22:17 09/15/16 02:38 Bedside Glucose 252 H 287 H 264 H 244 H Test 09/15/16 06:19 09/15/16 08:19 09/15/16 12:04 White Blood Count 5.4 Red Blood Count 3.68 L Hemoglobin 11.9 L Hematocrit 34.9 L Mean Corpuscular Volume 94.8 Mean Corpuscular Hemoglobin 32.3 Mean Corpuscular Hemoglobin Concent 34.1 Red Cell Distribution Width 12.9 Platelet Count 153 Mean Platelet Volume 10.0 Neutrophils % 56.8 Lymphocytes % 27.7 Monocytes % 12.5 H Eosinophils % 2.2 Basophils % 0.4 Nucleated Red Blood Cells % 0.0 Neutrophils # 3.1 Lymphocytes # 1.5 Monocytes # 0.7 Eosinophils # 0.1 Basophils # 0.0 Nucleated Red Blood Cells # 0.0 Sodium Level 140 Potassium Level 4.1 Chloride Level 101 Carbon Dioxide Level 28 Anion Gap 15 Blood Urea Nitrogen 21 H Creatinine 0.91 Glucose Level 249 #H Calcium Level 9.1 Bedside Glucose 205 218 Medications Medications Current Medications Diagnostic Test (Pha) (Accu-Chek) 1 ea 02 XX ; Start 09/12/16 at 02:00 Diagnostic Test (Pha) (Accu-Chek) 1 ea 02 XX ; Start 09/12/16 at 02:00 Ibuprofen (Motrin) 600 mg Q8H PRN PO pain; Start 09/11/16 at 20:30 Tamsulosin HCl (Flomax) 0.4 mg HS PO Last administered on 09/14/16 21:38; Admin Dose 0.4 MG; Start 09/11/16 at 21:00 Miscellaneous Information 1 ea NOTE XX ; Start 09/11/16 at 21:00 Glucose (Glutose) 15 gm Q15M PRN PO DECREASED GLUCOSE; Start 09/11/16 at 21:00 Glucose (Glutose) 22.5 gm Q15M PRN PO DECREASED GLUCOSE; Start 09/11/16 at 21:00 Dextrose (D50w Syringe) 25 ml Q15M PRN IV DECREASED GLUCOSE; Start 09/11/16 at 21:00 Dextrose (D50w Syringe) 50 ml Q15M PRN IV DECREASED GLUCOSE; Start 09/11/16 at 21:00 Glucagon (Glucagen) 1 mg Q15M PRN IM DECREASED GLUCOSE; Start 09/11/16 at 21:00 Glucose (Glutose) 15 gm Q15M PRN BUCCAL DECREASED GLUCOSE; Start 09/11/16 at 21: 00 Linagliptin (Tradjenta) 5 mg DAILY PO Last administered on 09/15/16 08:33; Admin Dose 5 MG; Start 09/12/16 at 09:00 Trazodone HCl (Desyrel) 100 mg HS PO Last administered on 09/14/16 21:38; Admin Dose 100 MG; Start 09/11/16 at 21:00 Multivitamins/ Minerals (Theragran-M) 1 tab DAILY PO Last administered on 08:33; Admin Dose 1 TAB; Start 09/12/16 at 09:00 Memantine 10 mg 10 mg DAILY PO Last administered on 09/15/16 08:33; Admin Dose 10 MG; Start 09/12/16 at 09:00 Sodium Chloride (1/2 NS) 1,000 ml @ 50 mls/hr Q20H IV Last administered on 09/15 11:59; Admin Dose 50 MLS/HR; Start 09/13/16 at 17:30 Insulin Glargine (Lantus) 22 unit DAILY@20 SC ; Start 09/14/16 at 20:00 Apixaban (Eliquis) 10 mg BID PO Last administered on 09/15/16 08:33; Admin Dose 10 MG; Start 09/14/16 at 21:00 JAROD BECKFORD Sep 15, 2016 15:40
[2016-09-15 20:03] VITALS: BP 144/74; RESP 19
[2016-09-15] MEDS: INSULIN GLARGINE [LANtus] 3 ML PEN SC SCH (20:06)
[2016-09-15] MEDS: TAMSULOSIN (SR) 0.4 MG CAP PO SCH (20:07)
[2016-09-15] MEDS: traZODone 50 MG TAB PO SCH (20:07)
== END 2016-09-15 21:40 | disposition home health service (06) | DRG 301 ==
LOC: E/R 16:16 → PP2 17:07
PROVIDERS: ADMIT Internal Medicine; ATTEND Internal Medicine
DX: I82.401 Acute embolism and thrombosis of unspecified deep veins of right lower extremity (principal); F03.90 Unspecified dementia, unspecified severity, without behavioral disturbance, psychotic disturbance, mood disturbance, and anxiety; E11.9 Type 2 diabetes mellitus without complications; M79.89 Other specified soft tissue disorders; I10 Essential (primary) hypertension; Z74.01 Bed confinement status; Z79.4 Long term (current) use of insulin
CPT/HCPCS: 36415; 71010; 80048; 80053; 80061; 82962; 83036; 84484; 85025; 85610; 85730; 87081; 93005; 93971; 96372; 96374; 97161; J1815; J1885